=== PATIENT | male | born 1965 | race Two or more races ===

== ENCOUNTER 2018-08-07 16:08 | Emergency (ER) | payer MEDICAID ==
[~2018-08-07] VITALS: Ht 170.2 cm; Wt 67.1 kg
--- NOTE | 2018-08-07 16:15 | NUR ---
PT C/O OF DIZZINESS X 3-4 DAYS. PALPITATIONS NOTED TODAY. DENIES ANY PAIN AT THIS TIME. RR EVEN AND UNLABORED. VSS. MD AT BEDSIDE FOR EVAL.
[2018-08-07] MEDS ORDERED: LORAZEPAM 1 MG TABLET ONE (16:25)
[2018-08-07] MEDS ORDERED: LORAZEPAM 1 MG TABLET PO ONE (16:30)
[2018-08-07 16:35] LABS: BASOPHILS % (AUTO) 0.6 % (0.0-2.0); EOSINOPHILS % (AUTO) 1.1 % (0.0-6.0); HEMATOCRIT 42 % (39-51); LYMPHOCYTES # (AUTO) 1.5 /CMM (0.8-4.8); LYMPHOCYTES % (AUTO) 23.2 % (20.0-44.0); MEAN CORPUSCULAR HGB CONC 34 g/dl (31.0-36.0); MEAN CORPUSCULAR VOLUME 102 fL (80-96); MONOCYTES # (AUTO) 0.9 /CMM (0.1-1.30); MONOCYTES % (AUTO) 13.9 % (2.0-12.0); NEUTROPHILS # (AUTO) 3.9 /CMM (1.8-8.9); NEUTROPHILS % (AUTO) 61.2 % (43.0-81.0); PLATELET COUNT (AUTO) 235 /CMM (150-450); RED BLOOD CELL COUNT(AUTO) 4.11 MIL/uL (4.5-6.0); WHITE BLOOD COUNT (AUTO) 6.3 K/uL (4.3-11.0)
[2018-08-07 16:44] LABS: CALCIUM, SERUM 9.7 mg/dL (8.5-10.1); CARBON DIOXIDE 21 mmol/L (21-32); CHLORIDE 99 mmol/L (98-107); CREATININE 1.1 mg/dL (0.6-1.3); GLUCOSE 144 mg/dL (74-106); POTASSIUM 3.7 mmol/L (3.5-5.1); SODIUM SERUM 137 mmol/L (136-145); UREA NITROGEN, BLOOD 13 mg/dL (7-18)
--- NOTE | 2018-08-07 16:45 | NUR ---
PT TOLERATED PO ATIVAN WITH WATER.
[2018-08-07 16:50] LABS: ALANINE AMINOTRANSFERASE 58 U/L (12-78); ALBUMIN 4.9 g/dL (3.4-5.0); ALKALINE PHOSPHATASE 89 U/L (46-116); ASPARTATE AMINOTRANSFERASE 63 U/L (15-37); BILIRUBIN,DIRECT 0.2 mg/dL (0.0-0.2); BILIRUBIN,TOTAL 0.6 mg/dL (0.2-1.0); TOTAL PROTEIN, SERUM 8.5 g/dL (6.4-8.2)
[2018-08-07 16:54] LABS: ALCOHOL, BLOOD < 3 mg/dL (0-0)
[2018-08-07] MEDS ORDERED: LEVETIRACETAM (250 MG) 250 MG TABLET PO ONE ×2 (17:27→17:30)
[2018-08-07 17:32] VITALS: BP 141/71
[2018-08-07 17:35] LABS: VALPROIC ACID 1 ug/mL (50-100)
[2018-08-07 17:37] LABS: PHENOBARBITAL 1 ug/ml (15-39); PHENYTOIN (DILANTIN) < 0.5 ug/ml (10.0-20.0)
--- NOTE | 2018-08-07 17:37 | NUR ---
Patient discharged to home in stable condition. Written and verbal after care instructions given. Patient verbalizes understanding of instruction.IV removed. Catheter intact and site benign. Pressure and 4x4 applied to site. No bleeding noted.
== END 2018-08-07 17:50 | disposition home or self-care (01) ==
LOC: ER 16:09
DX: G40.909 Epilepsy, unspecified, not intractable, without status epilepticus (principal); F10.10 Alcohol abuse, uncomplicated; F17.200 Nicotine dependence, unspecified, uncomplicated; Y90.0 Blood alcohol level of less than 20 mg/100 ml
CPT/HCPCS: 36415; 70450-TC; 80048-TC; 80076-TC; 80164-TC; 80184; 80185-TC; 85025-TC; G0480

== ENCOUNTER 2020-08-28 12:03 | Emergency (ER) | payer MEDICAID ==
[~2020-08-28] VITALS: Ht 165.1 cm; Wt 65.8 kg
--- NOTE | 2020-08-28 12:03 | NUR ---
PT BIBRA 839 FROM THE STRETT C/O BACK PAIN AND ETOH. PT IS AAOX4, NOT IN RESPIRATORY DISTRESS, V/S STABLE, KEPT RESTED AND COMFORTABLE. WILL CONTINUE TO MONITOR.
--- NOTE | 2020-08-28 12:10 | NUR ---
AT BEDSIDE FOR EVAL.
--- NOTE | 2020-08-28 20:04 | NUR ---
The patient alert and oriented x4. Respiration regular and unlabored. Denies pain. Patient discharged to home in stable condition. Written and verbal after care instructions given. Patient verbalizes understanding of instruction.
[2020-08-28 20:07] VITALS: BP 143/64
== END 2020-08-28 20:07 | disposition home or self-care (01) ==
LOC: ER 12:08
DX: F10.129 Alcohol abuse with intoxication, unspecified (principal); F17.200 Nicotine dependence, unspecified, uncomplicated; Y90.9 Presence of alcohol in blood, level not specified